=== PATIENT | male | born 1950 | race Caucasian/White ===

== ENCOUNTER 2018-09-20 10:56 | Inpatient (IN) ==
[2018-09-20] MEDS ORDERED: NS 1,000 ML IV PRN (11:15)
--- NOTE | 2018-09-20 11:24 | EKG Report ---
Test Performed on : 09/20/2018 11:19:41 AM Test Reason : Stroke like symptoms Blood Pressure : / mmHG Vent. Rate : 057 BPM Atrial Rate : 057 BPM P-R Int : 144 ms QRS Dur : 074 ms QT Int : 458 ms P-R-T Axes : 000 030 036 degrees QTc Int : 445 ms Sinus bradycardia. with marked sinus arrhythmia. Otherwise normal ECG When compared with ECG of 17-SEP-2017 11:38, premature supraventricular complexes. are no longer present Unconfirmed Result
[2018-09-20] MEDS ORDERED: ANTIVERT PO ONE (11:49)
--- NOTE | 2018-09-20 12:02 | Diag Imaging Result Doc PS360 ---
EXAM: CHEST-PORTABLE INDICATION: stroke like symptoms TECHNIQUE: One view COMPARISON: 02/24/2018 FINDINGS: There is evidence of prior granulomatous disease, stable. The lungs are grossly clear. There is no discrete pleural fluid collection or pneumothorax. The cardiomediastinal silhouette and central vasculature are grossly unremarkable. IMPRESSION: No evidence of acute pathology by plain radiograph. Electronically signed by Raul Bee 09/20/2018 11:59 AM
[2018-09-20 12:09] LABS: INR 0.91
[2018-09-20 12:11] LABS: HEMOGLOBIN 15.4 g/dL (14.0-18.0); LYMPH% 21.2 % (20.5-51.1); MCHC 34.2 g/dL (33-37); MCV 96.4 FL (81-99); MONO% 13.6 % (1.7-9.3); MPV 11.8 FL (7.4-10.4); PLT 162 X1000 (130-400); RBC 4.67 XMIL (4.7-6.1); RDW 12.4 % (11.5-14.5); WBC 6.56 X1000 (4.8-10.8)
[2018-09-20 12:12] LABS: BASO# 0.02 X1000 (0.0-0.2); BASO% 0.3 % (0.0-0.8); EOS# 0.06 X1000 (0.0-0.7); EOS% 0.9 % (0.0-10.0); LYMPH# 1.39 X1000 (1.2-3.4); MONO# 0.89 X1000 (0.11-0.59)
--- NOTE | 2018-09-20 12:13 | Diag Imaging Result Doc PS360 ---
CT HEAD W/O CONTRAST - 09/20/2018 INDICATION: stroke like symptoms COMPARISON: 04/29/2013 FINDINGS: The ventricles and sulci are normal in size and contour. No intracranial mass or hemorrhage. The skull is intact. The sinuses mastoids and middle ears are clear. IMPRESSION: Negative exam. This exam was performed using automated exposure control, adjustment of mA or kV according to patient size, and/or use of iterative reconstruction technique Electronically signed by Haja Keith 09/20/2018 12:11 PM
[2018-09-20 12:26] LABS: AGAP 16; ALB/GLOB RATIO 1.4; ALKALINE PHOSPHATASE 70 U/L (32-122); BUN 11 mg/dL (8-22); CALCIUM 9.6 mg/dL (8.8-10.2); CHLORIDE 102 mmol/L (98-107); COSMO 281; CREATININE 0.8 mg/dL (0.7-1.2); ESTIMATED GFR > 60; GLUCOSE 106 mg/dL (70-104); GOT 28 U/L (10-34); GPT 34 U/L (10-44); SODIUM 141 mmol/L (136-145); TCO2 23 mmol/L (25-35); TOTAL BILIRUBIN 0.58 mg/dL (0.20-1.00); TOTAL PROTEIN 6.9 g/dL (6.3-8.3)
[2018-09-20 12:29] LABS: URINE SOURCE CLEAN CATCH
[2018-09-20 12:36] LABS: BILIRUBIN URINE NEGATIVE (NEGATIVE); BLOOD URINE NEGATIVE (NEGATIVE); COLOR YELLOW; GLUCOSE URINE NEGATIVE (NEGATIVE); KETONE URINE NEGATIVE (NEGATIVE); LEUKOCYTES URINE NEGATIVE (NEGATIVE); NITRITE URINE NEGATIVE (NEGATIVE); PH URINE 5.5; PROTEIN URINE NEGATIVE (NEGATIVE); SP GRAVITY URINE 1.008; TURBIDITY URINE CLEAR (CLEAR); UROBILINOGEN URINE NORMAL (NORMAL)
[2018-09-20 12:38] LABS: UR EPITHELIAL CELLS <10 /HPF (<10); URINE BACTERIA NEGATIVE /HPF; URINE RBC <10 /HPF (<10); URINE WBC <10 /HPF (<10)
[2018-09-20 12:48] LABS: UR AMPHETAMINES QUAL NONE DETECTED (NONE DETECT); UR BARBITUATES QUAL NONE DETECTED (NONE DETECT); UR BENZODIAZEPIN QUAL NONE DETECTED (NONE DETECT); UR CANNABINOIDS QUAL NONE DETECTED (NONE DETECT); UR COCAINE QUAL NONE DETECTED (NONE DETECT); UR METHADONE QUAL NONE DETECTED (NONE DETECT); UR OPIATES QUAL NONE DETECTED (NONE DETECT); UR OXYCODONE QUAL NONE DETECTED (NONE DETECT); UR PCP QUAL NONE DETECTED (NONE DETECT)
--- NOTE | 2018-09-20 13:49 | PROVIDER DOCUMENTATION ---
This chart was entered by Rhianna Nunez Scribe, acting as scribe for Rey Mercado MD. HPI-Neurological Disorder - General Chief Complaint: Stroke-Like Symptoms Stated Complaint: STROKE LIKE SYMPTOMS Time Seen by Provider: 09/20/18 11:11 Source: patient Allergies/Adverse Reactions: Patient Allergies Allergy/AdvReac Type Severity Reaction Status Date / Time No Known Allergies Allergy Verified 09/20/18 12:50 Home Medications: Home Medication List Medication Instructions Recorded Confirmed Last Taken Type Aspirin 325 mg PO DAILY 09/20/18 09/20/18 Unknown History Finasteride [Proscar] 5 mg PO DAILY 09/20/18 09/20/18 Unknown History Losartan Potassium 50 mg PO DAILY 09/20/18 09/20/18 Unknown History Metoprolol Succinate 100 mg PO DAILY 09/20/18 09/20/18 Unknown History Montelukast Sodium 10 mg PO DAILY 09/20/18 09/20/18 Unknown History Rosuvastatin Calcium 20 mg PO DAILY 09/20/18 09/20/18 Unknown History Tamsulosin [Flomax] 0.4 mg PO DAILY 09/20/18 09/20/18 Unknown History Ubidecarenone [Co Q-10] 200 mg PO DAILY 09/20/18 09/20/18 Unknown History - History of Present Illness-Neuro Nature of Presenting Problem: [id number] presents to ED cc dizziness, vision changes, weakness to LUE and LLE since Thursday. Pt reports he saw Dr. Lowery, his PCP, this morning and she referr ed him to ED for further evaluation. Pt is A&Ox3. Pt has hx of peripheral vascular disease. 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 denies: chills, fever Eyes: reports: see HPI, blurred vision Ears, Nose, Mouth & Throat: reports: no symptoms reported Cardiovascular: reports: no symptoms reported Respiratory: reports: no symptoms reported Gastrointestinal: reports: no symptoms reported Genitourinary: reports: no symptoms reported Musculoskeletal: reports: no symptoms reported Integumentary: reports: no symptoms reported Neurological: reports: see HPI, dizziness/vertigo, loss of balance, other (weakness left side) Psychiatric: reports: no symptoms reported Endocrine: reports: no symptoms reported Hematologic/Lymphatic: reports: no symptoms reported Allergic/Immunologic: reports: no symptoms reported All Other Systems: Reviewed and Negative Past History - Adult - PAST MEDICAL HISTORY-ADULT Review of Records: reports: Nursing Assessment Review, Medications Reviewed, Social history reviewed & non-contributory. Major Childhood Illnesses: reports: denies history Cardiovascular: reports: denies history Respiratory: reports: denies history Gastrointestinal: reports: denies history Obstetrical/Gynecological: reports: denies history Genitourinary: reports: denies history Musculoskeletal: reports: denies history Neurological: reports: denies history Endocrine/Immune: reports: denies history Other Conditions: reports: denies history - IMMUNIZATION STATUS Childhood Immunizations: See Nurse Assessment Flu Vaccine: See Nurse Assessment - FAMILY HISTORY Family History: reviewed, not pertinent Physical Exam- Neurological - Physical Exam-Neuro Initial Vital Signs Reviewed: Yes General Appearance: appears well, alert, no apparent distress. negative: anxious, combative Eye Exam: bilateral eye: normal inspection, PERRL HENMT: normocephalic/atraumatic, moist mucous membranes, normal ENT inspection. negative: angioedema Head Injury: no evidence of injury. negative: active bleeding, Dhillon's Sign, contusions, ecchymosis, flap, lacerations, raccoon eyes, swelling, tenderness Respiratory: chest non-tender, lungs clear, normal breath sounds, no pleuratic chest pain, no respiratory distress, no accessory muscle use. negative: crackles, rales, rhonchi, stridor, wheezing Cardiovascular: normal peripheral pulses, regular rate, rhythm, no edema, no gallop, no JVD, no murmur. negative: bradycardia, tachycardia Abdominal Exam: normal bowel sounds, non tender, soft, no organomegaly, no pulsatile mass. negative: distended, guarding, rigid, rebound, tenderness, hernia, mass Extremity: non-tender, no pedal edema, no calf tenderness, normal capillary refill. negative: deformity, erythema consumer insight analyst Exam: normal hearing, normal speech, PERRL. negative: facial asymmetry, facial droop, facial paresthesias, facial weakness Motor/Sensory: weak motor strength LLE. negative: weak motor strength RUE, weak motor strength LUE, weak motor strength RLE Neurologic: sensory deficit (LUE and LLE). negative: facial droop, focal weakness Integumentary: normal color, normal turgor, warm/dry, other (small ganglion cyst on top of left hand near wrist). negative: cyanosis, diaphoresis, ecchymosis, erythema, jaundice, rash Psych/Mental Status: normal mood/affect, normal thought content, normal thought process, oriented x 3. negative: disoriented x 3, anxious, disheveled, depressed affect - Glascow Coma Scale Best Eye Response: (4) open spontaneously Best Verbal Response: (5) oriented Best Motor Response: (6) obeys commands Total Glascow Score: 15 Progress - PLAN OF CARE/RESULTS Progress/Plan/Lab Results: Vital Signs - 8 hr 09/20/18 11:00 09/20/18 11:11 09/20/18 11:12 Temperature 97.2 F L Pulse Rate 58 L 70 Respiratory Rate 18 Blood Pressure 128/98 174/85 O2 Sat by Pulse Oximetry 98 98 98 09/20/18 11:18 09/20/18 11:20 09/20/18 11:30 Temperature Pulse Rate 54 L 56 L 58 L Respiratory Rate 23 23 20 Blood Pressure 176/81 O2 Sat by Pulse Oximetry 98 95 98 09/20/18 11:32 09/20/18 11:56 09/20/18 12:00 Temperature Pulse Rate 58 L 56 L 56 L Respiratory Rate 17 23 16 Blood Pressure 178/90 O2 Sat by Pulse Oximetry 98 99 100 09/20/18 12:02 Temperature Pulse Rate 57 L Respiratory Rate 21 Blood Pressure 164/93 O2 Sat by Pulse Oximetry 99 Laboratory Results - last 24 hr 09/20/18 09/20/18 09/20/18 11:33 11:33 11:33 WBC RBC Hgb Hct MCV MCH MCHC RDW Std Deviation Plt Count MPV Immature Gran % (Auto) Neut % (Auto) Lymph % (Auto) Garfield % (Auto) Eos % (Auto) Baso % (Auto) Immature Gran # (Auto) Neut # (Auto) Lymph # (Auto) Garfield # (Auto) Eos # (Auto) Baso # (Auto) PT 13.0 INR 0.91 PTT (Actin FS) 27.0 Sodium 141 Potassium 4.0 Chloride 102 Carbon Dioxide 23 L Anion Gap 16 BUN 11 Creatinine 0.8 Estimated GFR/1.73 m2 > 60 BUN/Creatinine Ratio 14 Glucose 106 H POC Glucose Calculated Osmolality 281 Calcium 9.6 Total Bilirubin 0.58 AST 28 ALT 34 Alkaline Phosphatase 70 Troponin T < 0.010 Total Protein 6.9 Albumin 4.0 Globulin 2.9 Albumin/Globulin Ratio 1.4 Urine Source Urine Color Urine Turbidity Urine pH Ur Specific [place] Urine Protein Ur Glucose (Stick) Ur Ketones (Stick) Urine Blood Urine Nitrite Urine Bilirubin Urobilinogen Dipstick Urine Leukocytes Urine WBC (Auto) Urine RBC (Auto) U Epithel Cells (Auto) Urine Bacteria (Auto) Urine Opiates Screen Ur Oxycodone Screen Ur Methadone, Qual Ur Barbiturates Screen Ur Phencyclidine Scrn Ur Amphetamines Screen U Benzodiazepines Scrn Urine Cocaine Screen U Cannabinoids Screen 09/20/18 09/20/18 09/20/18 11:33 12:04 12:18 WBC 6.56 RBC 4.67 L Hgb 15.4 Hct 45.0 MCV 96.4 MCH 33.0 H MCHC 34.2 RDW Std Deviation 12.4 Plt Count 162 MPV 11.8 H Immature Gran % (Auto) 0.0 Neut % (Auto) 64.0 Lymph % (Auto) 21.2 Garfield % (Auto) 13.6 H Eos % (Auto) 0.9 Baso % (Auto) 0.3 Immature Gran # (Auto) 0.00 Neut # (Auto) 4.20 Lymph # (Auto) 1.39 Garfield # (Auto) 0.89 H Eos # (Auto) 0.06 Baso # (Auto) 0.02 PT INR PTT (Actin FS) Sodium Potassium Chloride Carbon Dioxide Anion Gap BUN Creatinine Estimated GFR/1.73 m2 BUN/Creatinine Ratio Glucose POC Glucose 95 Calculated Osmolality Calcium Total Bilirubin AST ALT Alkaline Phosphatase Troponin T Total Protein Albumin Globulin Albumin/Globulin Ratio Urine Source CLEAN CATCH Urine Color YELLOW Urine Turbidity CLEAR Urine pH 5.5 Ur Specific [place] 1.008 Urine Protein NEGATIVE Ur Glucose (Stick) NEGATIVE Ur Ketones (Stick) NEGATIVE Urine Blood NEGATIVE Urine Nitrite NEGATIVE Urine Bilirubin NEGATIVE Urobilinogen Dipstick NORMAL Urine Leukocytes NEGATIVE Urine WBC (Auto) <10 Urine RBC (Auto) <10 U Epithel Cells (Auto) <10 Urine Bacteria (Auto) NEGATIVE Urine Opiates Screen Ur Oxycodone Screen Ur Methadone, Qual Ur Barbiturates Screen Ur Phencyclidine Scrn Ur Amphetamines Screen U Benzodiazepines Scrn Urine Cocaine Screen U Cannabinoids Screen 09/20/18 12:18 WBC RBC Hgb Hct MCV MCH MCHC RDW Std Deviation Plt Count MPV Immature Gran % (Auto) Neut % (Auto) Lymph % (Auto) Garfield % (Auto) Eos % (Auto) Baso % (Auto) Immature Gran # (Auto) Neut # (Auto) Lymph # (Auto) Garfield # (Auto) Eos # (Auto) Baso # (Auto) PT INR PTT (Actin FS) Sodium Potassium Chloride Carbon Dioxide Anion Gap BUN Creatinine Estimated GFR/1.73 m2 BUN/Creatinine Ratio Glucose POC Glucose Calculated Osmolality Calcium Total Bilirubin AST ALT Alkaline Phosphatase Troponin T Total Protein Albumin Globulin Albumin/Globulin Ratio Urine Source Urine Color Urine Turbidity Urine pH Ur Specific [place] Urine Protein Ur Glucose (Stick) Ur Ketones (Stick) Urine Blood Urine Nitrite Urine Bilirubin Urobilinogen Dipstick Urine Leukocytes Urine WBC (Auto) Urine RBC (Auto) U Epithel Cells (Auto) Urine Bacteria (Auto) Urine Opiates Screen NONE DETECTED Ur Oxycodone Screen NONE DETECTED Ur Methadone, Qual NONE DETECTED Ur Barbiturates Screen NONE DETECTED Ur Phencyclidine Scrn NONE DETECTED Ur Amphetamines Screen NONE DETECTED U Benzodiazepines Scrn NONE DETECTED Urine Cocaine Screen NONE DETECTED U Cannabinoids Screen NONE DETECTED Orders Category Date Time Status Cardiac Monitoring DIRECTED Care 09/20/18 11:15 Active Finger Stick Blood Sugar (ED) DIRECTED Care 09/20/18 11:15 Completed Saline Loc NOW Care 09/20/18 11:15 Active CHEST-PORTABLE [RAD] Stat Exams 09/20/18 11:[address] HEAD W/O CONTRAST [CT] Stat Exams 09/20/18 11:15 Completed CBC WITH ELECTRONIC DIFF [HEME] Stat Lab 09/20/18 11:33 Completed COMPREHENSIVE METABOLIC PANEL [CHEM] Stat Lab 09/20/18 11:33 Completed PROTIME WITH INR [COAG] Stat Lab 09/20/18 11:33 Completed PTT [COAG] Stat Lab 09/20/18 11:33 Completed TROPONIN T Stat Lab 09/20/18 11:33 Completed URINALYSIS W/POSS RFLX CULT [URINALYSIS] Stat Lab 09/20/18 12:18 Completed URINE DRUG SCREEN Stat Lab 09/20/18 12:18 Completed 0.9% Sodium Chloride Inj [Ns] 1,000 ml Med 09/20/18 11:15 Active IV 999 mls/hr Meclizine [Antivert] Med 09/20/18 11:49 Discontinued 25 mg PO NOW ONE EKG [EKG] Stat Ther 09/20/18 11:15 Draft Result Diagrams: 09/20/18 11:33 09/20/18 11:33 - EKG 1 Time of EKG reading by physician:: 11:19 EKG Read and Signed by:: Rey Mercado EKG Interpretation (*Must complete 3 of following elements*): Normal Rate: 57 Rhythm: sinus bradycardia QRS: normal MO Interval: normal - XRAY 1 XRAY: Bilateral XRAY Study: Chest Impression: See EMR Report (IMPRESSION: No evidence of acute pathology by plain radiograph. Electronically signed by Raul Bee 09/20/2018 11:59 AM) - CT/MRI 1 CT Study: Head Impression: See EMR Report (IMPRESSION: Negative exam. This exam was performed using automated exposure control, adjustment of mA or kV according to patient size, and/or use of iterative reconstruction technique Electronically signed by Haja Keith 09/20/2018 12:11 PM) - CONSULTS/PCP/HOSPITALIST Notification #1 *Consult/PCP/Hospitalist*: Nini/[employer] CONSULTANT for Dr Gardner Time Discussed: 13:42 Consult Disposition: Will see in ED, Admit (agreed to admit to Dr. Gardner) Departure - Departure Date of Disposition Decision: 09/20/18 Time of Disposition Decision: 13:48 DIAGNOSIS: CVA (cerebral vascular accident) Disposition: ADMITTED INPATIENT 09 Certified Medical Emergency: Emergent Condition: Fair Additional Freetext Instructions: ED Follow Up Instructions: You have been treated by a care provider in the Emergency Department. These instructions are being provided to you so you can have an understanding of how to care for yourself upon discharge. Upon discharge from the Emergency Department, you are responsible for making arrangements for follow-up care by a physician of your choice. Take all prescribed medications as directed. Return to the Emergency Department immediately for any new or worsening symptoms. You may call the Physician Referral phone number at [phone] to obtain a list of Physicians who are taking new patients. Referrals and Follow-Ups: Julienne Lowery MD [Primary Care Provider] - - Critical Care Note This patient required my direct & personal management of CC.: No Attestation - Physician/ EDWARD Attestation Patient care was provided by Advanced Practice Provider:: No The physician spent face to face time with patient:: Yes Advanced Practice Provider documentation review:: Supervising physician onsite and consulted in the evaluation and care of this patient. The physician did have a face to face encounter with the patient. This chart was documented by the indicated scribe, (Rhianna Nunez, Nemo) and accurately reflects the services I performed and decisions made by me, Rey Mercado MD, as attested by the provider's signature.
[2018-09-20] MEDS ORDERED: ZOFRAN IV PRN (14:58)
[2018-09-20] MEDS ORDERED: TYLENOL PO PRN (14:58)
[2018-09-20] MEDS ORDERED: ATIVAN IV ONE (17:35)
[2018-09-20] MEDS: PLAVIX PO SCH (18:34)
--- NOTE | 2018-09-20 19:01 | HISTORY AND PHYSICAL ---
PRIMARY CARE PHYSICIAN: Dr. Lowery. CHIEF COMPLAINT: Dizziness, vision changes, weakness to left upper and lower extremity that began Thursday and progressively worsened. HISTORY OF PRESENTING ILLNESS: This is a 67-year-old male who presents to [facility] with complaints of dizziness, blurred vision and weakness to his left upper and lower extremity that began Thursday. He states he saw his primary care physician this morning and she referred him to the emergency department for further evaluation. His workup in the emergency room showed a CT of the head that was negative, a chest x-ray that showed no evidence of acute pathology by plain radiograph, EKG that showed sinus bradycardia with marked sinus arrhythmia at 57. His blood pressure on arrival was 128/98 but about 10 minutes later went up to 174/85 so he will be admitted to the medical unit for further evaluation and treatment. PAST MEDICAL HISTORY: Of hypertension, peripheral vascular disease, hyperlipidemia. PAST SURGICAL HISTORY: Appendectomy, tonsillectomy and a left forearm muscle repair. FAMILY HISTORY: Heart disease, CVA and cancer. SOCIAL HISTORY: Currently lives with family, quit smoking 30 years ago, drinks 4 of whiskey drinks daily and denied any illicit drug use. ALLERGIES: He has no known drug allergies. HOME MEDICATIONS: He takes aspirin 325 mg p.o. daily, Proscar 5 mg p.o. daily, losartan 50 mg p.o. daily, metoprolol 100 mg p.o. daily, montelukast sodium 10 mg p.o. daily, rosuvastatin 20 mg p.o. daily, Flomax 0.4 mg p.o. daily and Co-Q10 200 mg p.o. daily. LABORATORY DATA: Showed a white blood cell count of 6.56, hemoglobin 15.4, hematocrit 45, platelets 162,000, PT and INR of 13 and 0.91. Sodium 141, potassium 4, chloride 102, CO2 23, BUN was 11, creatinine 0.8, glucose 106. Troponin was less than 0.010. Urinalysis was negative. Urine drug screen was negative. Chest x-ray showed no evidence of acute pathology by plain radiograph. EKG showed sinus bradycardia with marked sinus arrhythmia at 57. CT of the head was a negative exam. REVIEW OF SYSTEMS: He denied any fever, chills. He has had some blurred vision, dizziness, difficulty swallowing, some dryness in his eyes. Denied any chest pain, coughing, shortness of breath, denied any abdominal pain, constipation, diarrhea, burning or hurting with urination. He has weakness to his left upper and left lower extremity. PHYSICAL EXAMINATION: On arrival he had a temperature of 97.2 degrees, pulse 58, respirations 18, blood pressure 128/98, saturating 98% on room air. Currently blood pressure has gone up to 164/93. GENERAL: This is a 67-year-old male who is lying in the bed and answers questions appropriately. HEENT: Normocephalic, atraumatic. Normal ENT inspection. Oropharynx and nares are clear. Pupils are equal, round, reactive to light and accommodation. Extraocular movements are intact. NECK: Normal inspection, normal range of motion. LUNGS: Clear to auscultation bilaterally with equal lung expansion and chest wall movement. HEART: With regular rate and rhythm. No murmurs, rubs, or gallops. ABDOMEN: Soft, nontender, nondistended. Bowel sounds are present x4 quadrants. MUSCULOSKELETAL: He is able to move all extremities but he has 2/5 strength to left upper and left lower extremity, 5/5 strength to his right upper and right lower extremity. NEUROLOGICAL: Cranial nerves 2-12 appear grossly intact. He does have hand grasps with right greater than left and lower extremity strength with right greater than left but no other focal deficits noted. He did have some minimal difficulty swallowing initially but that seems to have resolved. He does state he feels that his throat is dry and had some dry eyes. ASSESSMENT: 1. Transient ischemic attack versus cerebrovascular accident. 2. Hypertension. 3. Hyperlipidemia. PLAN: He will be admitted to the medical unit, placed on telemetry, O2 per protocol. We will check an MRI of the brain with and without contrast, an MRA of the brain without contrast, neuro checks per protocol and allow him to have a healthy heart diet. Will consult physical therapy and speech therapy. Check an echocardiogram and a carotid ultrasound. Place SCDs for DVT prophylaxis. Continue home medications. Recheck CBC, BMP and lipid profile in the a.m. Dictated by MARISOL Fernandes for William Gardner MD cc: MD William Fox MD
[2018-09-20] MEDS ORDERED: MELATONIN PO SCH (21:00)
--- NOTE | 2018-09-20 21:30 | HISTORY AND PHYSICAL ---
ADDENDUM: Patient came in today because he had a problem with acute weakness which started actually initially on Thursday. He went to work, but he was unable to really ambulate without dizziness and ataxia. His signs and symptoms did not improve, so he came in for evaluation per PCP, Dr. Lowery, and he was sent to the ER for evaluation. There, he was felt to have signs and symptoms consistent with possible stroke, including left upper and lower extremity weakness. His exam though is not focal. There may be a slight left facial droop, but I could not appreciate any focal weakness. The rest of the laboratory data workup is unremarkable. Patient will be admitted for MRI for rule out cerebrovascular accident, and we will continue to monitor. He is already on aspirin, so we may consider metabolic workup pending his other issues. cc: William Gardner MD
[2018-09-21 05:10] LABS: ALLEN TEST YES; BE -0.2 mmoll (-3.0-3.0); BLOOD TYPE ARTERIAL; HCO3-(ACT) 24.7 mmoll (20.0-26.0); METHB 1.3 % (0.0-1.5); O2HB 93.8 % (95.0-99.0); PCO2(98.6) 41 mmHg (35-45); PO2(98.6) 73 mmHg (60-100); SAMPLE BLOOD; THB 14.4 g/dL (11.5-17.4); pH(98.6) 7.39 (7.35-7.45)
[2018-09-21 05:12] LABS: MODALITY ROOM AIR
[2018-09-21 06:22] LABS: BASO# 0.01 X1000 (0.0-0.2); BASO% 0.2 % (0.0-0.8); EOS# 0.11 X1000 (0.0-0.7); HEMATOCRIT 43.7 % (42.0-52.0); HEMOGLOBIN 14.6 g/dL (14.0-18.0); IMM GRAN# 0.02 X1000 (0.0-0.04); IMM GRAN% 0.4 % (0.0-0.5); LYMPH# 1.62 X1000 (1.2-3.4); LYMPH% 29.6 % (20.5-51.1); MCH 32.4 PG (27-31); MCHC 33.4 g/dL (33-37); MCV 97.1 FL (81-99); MONO# 0.65 X1000 (0.11-0.59); MONO% 11.9 % (1.7-9.3); MPV 11.3 FL (7.4-10.4); NEUT# 3.06 X1000 (1.4-6.5); NEUT% 55.9 % (42.2-75.2); PLT 144 X1000 (130-400); RDW 12.5 % (11.5-14.5); WBC 5.47 X1000 (4.8-10.8)
[2018-09-21 06:31] LABS: HEMOGLOBIN A1C 5.5 % (4.8-6.0)
[2018-09-21 06:43] LABS: AGAP 13; BUN 9 mg/dL (8-22); CALCIUM 9.2 mg/dL (8.8-10.2); CHLORIDE 106 mmol/L (98-107); COSMO 282; CREATININE 0.9 mg/dL (0.7-1.2); ESTIMATED GFR > 60; GLUCOSE 98 mg/dL (70-104); SODIUM 142 mmol/L (136-145); TCO2 23 mmol/L (25-35)
[2018-09-21 07:32] LABS: SED RATE 3 mm/hr (0-15)
--- NOTE | 2018-09-21 08:10 | ECHO REPORT ---
ORDER DATE: 09/20/2018 INTERPRETING PHYSICIAN: Dr. Lomax REQUESTING PHYSICIAN: Dr. Gardner. This is a 2D echocardiogram. CLINICAL INDICATIONS: Stroke. M-MODE MEASUREMENTS: Left ventricle end diastole: 5.1 cm. Left ventricle end systole: 3.0 cm. Posterior wall: 1.0 cm. Interventricular septum: 1.0 cm. Left atrium: 4.2 cm. Aortic root: 3.8 cm. SUMMARY OF 2-DIMENSIONAL IMAGING: The left ventricular function is normal. Ejection fraction estimated visually at 55%. There is no wall motion abnormality. The right ventricle appears to be normal. The aortic valve has 3 cusps. They open normally. Color flow mapping indicates trace regurgitation. Pulmonic valve is normal. Color flow mapping indicates mild degree of regurgitation. Tricuspid valve shows mild degree of regurgitation. The pulmonary systolic pressure is estimated grossly at 32 mmHg. The diastolic is estimated grossly at 14 mmHg. Right sided chambers do not appear to be dilated. Mitral valve was normal. Color flow mapping indicates no significant regurgitation. Pulse wave Doppler of mitral inflow is normal. Tissue Doppler of septal and lateral mitral annulus averages 10 cm per second. There is no diastolic dysfunction. There is no pericardial effusion, mass and no thrombus. The atria did not appear dilated. Agitated saline was injected and there was no evidence of Patent Foramen Ovale (no right to left shunt). Clinical correction recommended. cc: MD Delphine Burgess CRNP MTDD
[2018-09-21] MEDS ORDERED: ATIVAN ONE (08:38)
[2018-09-21] MEDS ORDERED: ASPIRIN PO SCH (09:00)
[2018-09-21] MEDS ORDERED: TOPROL XL PO SCH (09:00)
[2018-09-21] MEDS ORDERED: COZAAR PO SCH (09:00)
--- NOTE | 2018-09-21 10:55 | Diag Imaging Result Doc PS360 ---
MRI BRAIN W/WO CONTRAST - 09/21/2018 INDICATION: stroke COMPARISON: 07/04/2010 FINDINGS: There is a moderately extensive area of restricted diffusion in the right paramedian chandan. There is accompanying increased signal on the T2 and FLAIR images. No mass effect or hemorrhage. No other area of substantial abnormal signal. No abnormal contrast enhancement. IMPRESSION: Recent right paramedian pontine stroke. This report was discussed with NATALY Singh on 09/21/2018 at 10:50 AM and was readback. Electronically signed by Haja Keith 09/21/2018 10:53 AM
--- NOTE | 2018-09-21 11:02 | Diag Imaging Result Doc PS360 ---
MRA BRAIN W/O CONTRAST - 09/21/2018 INDICATION: stroke TECHNIQUE: Noncontrast [id number] technique was used COMPARISON: None FINDINGS: The vertebral and basilar arteries are normal. The posterior cerebral arteries are normal. The major cerebellar arteries are normal. Both internal carotid arteries are normal. The anterior and middle cerebral arteries are normal. No significant stenosis or aneurysm. The posterior communicating arteries are not visible. IMPRESSION: Negative exam. Electronically signed by Haja Keith 09/21/2018 10:59 AM
[2018-09-21] MEDS: PLAVIX PO SCH (11:19)
[2018-09-21] MEDS: ASPIRIN EC PO SCH (11:19)
[2018-09-21] MEDS: CRESTOR PO SCH (11:19)
[2018-09-21] MEDS: SINGULAIR PO SCH (11:19)
[2018-09-21] MEDS: PROSCAR PO SCH (11:19)
[2018-09-21] MEDS: COENZYME Q10 PO SCH (11:20)
[2018-09-21] MEDS: FLOMAX PO SCH (11:20)
--- NOTE | 2018-09-21 18:37 | PROGRESS NOTE ---
DATE: 09/21/2018 SUBJECTIVE: The patient has no major complaints. He wants to go home. He is very surprised about multiple issues, but he has had a stroke. He does look like he has improved though. OBJECTIVE: vital signs: Blood pressure 137/84, heart rate of 51, respiratory rate 20, temperature 97.7 degrees, 99% on room air. Cardiovascular: Regular rate and rhythm. Pulmonary: Bilateral breath sounds. Clear to auscultation. Gastrointestinal: Soft, nontender, nondistended. Bowel sounds are positive. LABORATORY DATA: White count is 5, hemoglobin and hematocrit 14 and 43, platelets 144,000. Basic was normal. PROBLEM LIST: 1. 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 We will continue aspirin. I have added Plavix. He is already on antihyperlipidemic medications. His LDL is normal, actually fairly low at 57, although may be acutely decreased. 2. Hypertension. We will continue his regular medications and follow. DISPOSITION: I anticipate discharge soon. Discussed with Physical Therapy. I really do greatly appreciate their input. She came to find me personally and discussed that she had concerns about his functional status at home. Not that he necessarily required rehabilitation, but he will need required PT therapy to improve, either home PT or outpatient PT. We had a long discussion with the patient. I am not sure he is safe enough at this point to drive on his own or ambulate on his own because he wanted to start work back the day after discharge. I discussed there would likely be decreased capacity. I will consult Dr. Marino just to get input onto functional status and how long he would need to be off work or at least work limitations and someone to follow up with for reassessment on down the line. We will continue secondary risk factor modification. Anticipate discharge tomorrow. cc: William Gardner MD
[2018-09-21] MEDS ORDERED: MELATONIN PO SCH (21:00)
[2018-09-22 06:28] LABS: BASO# 0.02 X1000 (0.0-0.2); BASO% 0.3 % (0.0-0.8); EOS# 0.11 X1000 (0.0-0.7); EOS% 1.6 % (0.0-10.0); HEMATOCRIT 46.3 % (42.0-52.0); HEMOGLOBIN 15.5 g/dL (14.0-18.0); IMM GRAN# 0.02 X1000 (0.0-0.04); IMM GRAN% 0.3 % (0.0-0.5); LYMPH# 1.47 X1000 (1.2-3.4); LYMPH% 21.6 % (20.5-51.1); MCH 32.8 PG (27-31); MCHC 33.5 g/dL (33-37); MCV 97.9 FL (81-99); MONO# 0.88 X1000 (0.11-0.59); MONO% 12.9 % (1.7-9.3); MPV 11.5 FL (7.4-10.4); NEUT# 4.32 X1000 (1.4-6.5); NEUT% 63.3 % (42.2-75.2); PLT 157 X1000 (130-400); RBC 4.73 XMIL (4.7-6.1); RDW 12.8 % (11.5-14.5); WBC 6.82 X1000 (4.8-10.8)
[2018-09-22 06:45] LABS: AGAP 12; BUN 10 mg/dL (8-22); CALCIUM 9.5 mg/dL (8.8-10.2); CHLORIDE 102 mmol/L (98-107); COSMO 277; CREATININE 0.9 mg/dL (0.7-1.2); ESTIMATED GFR > 60; GLUCOSE 100 mg/dL (70-104); POTASSIUM 4.4 mmol/L (3.5-5.1); SODIUM 139 mmol/L (136-145); TCO2 25 mmol/L (25-35)
[2018-09-22] MEDS: PROSCAR PO SCH (10:30)
[2018-09-22] MEDS: CRESTOR PO SCH (10:30)
[2018-09-22] MEDS: PLAVIX PO SCH (10:30)
[2018-09-22] MEDS: ASPIRIN EC PO SCH (10:30)
[2018-09-22] MEDS: FLOMAX PO SCH (10:30)
[2018-09-22] MEDS: SINGULAIR PO SCH (10:30)
[2018-09-22] MEDS: COENZYME Q10 PO SCH (10:31)
[2018-09-22 12:07] VITALS: BP 135/75
--- NOTE | 2018-09-22 13:14 | CONSULTATION ---
DATE OF CONSULTATION: 09/22/2018 HISTORY: Mr. Hsieh is 67-year-old and there is evidence of stroke. History from the patient is that he felt well when he went to work 5 days ago. During the day at work, he felt ill. He was dizzy. He had a little bit of headache. He has had some vision disturbance chronically, and that might have been more prominent 5 days ago. He noticed clumsiness in the left limbs. Eventually, he decided to leave work early. He reports symptoms were a little bit more prominent over the next few days, then stable, and now improved. There was never altered consciousness, altered awareness, or memory gap. Headache was never intense. There was never diplopia. He does not specifically recall nausea. He had unsteady gait, but did not fall. He reportedly had some slurred speech and trouble swallowing, which have resolved. Workup includes brain MRI showing evidence of recent right pontine infarction. Brain MRA was unremarkable. I believe that he has had carotid ultrasound with report pending. Echocardiogram showed no source of embolus. He has had long-standing tremor with his history today suggesting features of action tremor. He reports ethanol helps tremor. There is family history of tremor including mother and maternal grandparent. Past history is remarkable for hypertension and dyslipidemia. Ethanol intake is usually several drinks daily. He has cut that back to every other day recently. He quit smoking cigarettes decades ago. He reports taking his medicines as directed. He reports being told heartbeat was slow several years ago when he had extreme hypertension. He has been afebrile here. Heart rate has ranged 40s to 50s. Systolic blood pressures have ranged 120s to 180s. PHYSICAL EXAMINATION: On exam, Mr. Hsieh is awake, alert, attentive, and appropriate. Speech is not significantly dysarthric. Language function is intact on bedside testing. Recent and remote memory are good. Head and neck are unremarkable. Visual fair are full tested by confrontational finger counting. Extraocular movements are good. He does not report diplopia now. Facial motility is diminished on the left in an upper motor neuron pattern. Gag is intact. Tongue is midline. He can hear. Shoulder shrug is good. Strength is normal in the right limbs. I can overcome the left deltoid, 4+/5, wrist extensor 4+/5. He did rapid alternating movements much better with the right hand than the left. He did better with right gnrbyd-er-orid than with the left. He did better with right [id number] than with the left. He reports diminished pinprick appreciation over the left limbs compared to the right, and over the left face compared to the right. Proprioception is good at the right great toe MTP joint. He made some mistakes, and was generally slower to answer with proprioception testing at the left great toe MTP joint. I observed him walking with physical therapy. Gait is a little bit ataxic. Action tremor is noted in the arms in postural suspension, minimal on exam today. IMPRESSION: 1. Imaging evidence of acute right pontine infarction with clinical findings of mild left hemiparesis, left tiffanie ataxia, and gait difficulty. He has risk factors for cerebrovascular ischemic problems including hypertension and dyslipidemia. He has had some bradycardia which may be chronic and has not seemed sufficient to be primary cause of brain infarction. I encouraged him to be aggressive with management of his risk factors. If carotid ultrasound is unremarkable, as expected, I do not think we need anything further in the way of workup. I would continue treating blood pressure, continue aspirin and clopidogrel together for 3 months, and then consider returning to monotherapy for antiplatelet. I would continue his statin (rosuvastatin 20 mg daily prior to admission), and consider increasing that to 40 mg daily for 3 months. I encouraged him to strongly consider moderating his ethanol intake. We discussed possibility that his ataxia could be aggravated by ethanol. 2. 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 He is on metoprolol which might be providing some tremor benefit. We briefly discussed other management options for tremor, and I suggested that we not rock the boat with additional tremor management now. 3. Regarding his return to work, I discussed that at some length with patient and . I believe that he should not drive. He should not operate equipment or do anything that requires skillful use of the left limbs. Otherwise, I think he can perform the duties of his job. He believes he can make arrangements to manage within those limitations. Walker would be reasonable suggestion and, if he is not willing to use a walker, he should at least consider quad cane temporarily. Thanks for asking Neurology to see Mr. Hsieh. I will be glad to see him again inpatient or outpatient. cc: MD PALLAVI Gardner III
== END 2018-09-22 14:43 | disposition home or self-care (01) | DRG 65 ==
LOC: ED 10:56 → 4N 14:40
PROVIDERS: ATTEND Internal Medicine
CPT/HCPCS: 70450; 70544; 70553; 71010; 71045; 80048; 80053; 80061; 80101; 80301; 80307; 80324; 80345; 80346; 80353; 80358; 80361; 80365; 81001; 82805; 82948; 83036; 83721; 83992; 84443; 84484; 85025; 85610; 85651; 85730; 93005; 93306; 93880; 97110; 97116; 97162; 97165; 97530; A9270; A9579; G0431; G0434; G0479; G0480; J2060; J7030; S0138; XXXXX